=== PATIENT | male | born 1965 ===

== ENCOUNTER 2021-01-12 18:45 | Emergency (ER) | payer BC ==
[2021-01-12] MEDS: Acetaminophen/Codeine 300-30 MG Tab PO ONE (18:49)
--- NOTE | 2021-01-12 18:57 | EDM.PDOC ---
ED HPI GENERAL MEDICAL PROBLEM - General Chief Complaint: General Stated Complaint: HAND INJURY Time Seen by Provider: 01/12/21 18:45 Source of Information: Reports: Patient History Limitations: Reports: No Limitations - History of Present Illness INITIAL COMMENTS - FREE TEXT/NARRATIVE: Mr. Justin baker a 55 YOHM here for Rt hand injury from falling on the ice today. Rt hand is swollen and tender to the touch. He takes no medications on a regular basis. He has not tried anything at home for his pain. No bruising or erythema noted. No fever or CAMPOS, lungs are CTA. Normal HRR. Onset: Today, Sudden Onset Date: 01/12/21 Onset Time: 17:30 Duration: Hour(s): Location: Reports: Lower Extremity, Right Quality: Reports: Ache, Dull Severity: Mild Improves with: Reports: None Worsens with: Reports: Movement Context: Reports: Trauma Associated Symptoms: Reports: No Other Symptoms Right Hand Pain Score (Numeric/FACES): 6 - Related Data Allergies Allergy/AdvReac Type Severity Reaction Status Date / Time No Known Allergies Allergy Verified 01/12/21 19:02 Home Meds: Home Meds NK [No Known Home Meds] 01/12/21 [History] ED ROS GENERAL - Review of Systems Review Of Systems: Comprehensive ROS is negative, except as noted in HPI. Musculoskeletal: Reports: Hand Pain, Joint Pain, Joint Swelling ED EXAM, GENERAL - Physical Exam Exam: See Below Exam Limited By: No Limitations General Appearance: Alert, No Apparent Distress Eye Exam: Bilateral Eye: PERRL Ears: Normal External Exam Nose: Normal Inspection, Normal Mucosa Throat/Mouth: Normal Inspection, Normal Lips, Normal Teeth Head: Atraumatic, Normocephalic Neck: Normal Inspection, Supple, Non-Tender Respiratory/Chest: No Respiratory Distress, Lungs Clear, Normal Breath Sounds Cardiovascular: Normal Peripheral Pulses, Regular Rate, Rhythm, No Edema Peripheral Pulses: 2+: Brachial (L), Brachial (R) GI/Abdominal: Normal Bowel Sounds, Soft, Non-Tender Extremities: Joint Swelling, Limited Range of Motion, Other (Rt hand ) Neurological: Alert, Oriented, CN II-XII Intact Psychiatric: Normal Affect, Normal Mood Skin Exam: Warm, Dry, Intact Lymphatic: No Adenopathy Course - Vital Signs Last Recorded V/S: Last Vital Signs Temp 36.8 C 01/12/21 18:47 Pulse 62 01/12/21 18:47 Resp 16 01/12/21 18:47 BP 135/95 H 01/12/21 19:35 Pulse Ox 99 01/12/21 18:47 - Orders/Labs/Meds Orders: Active Orders 24 hr Category Date Time Status Vaccines to be Administered [RC] PER UNIT ROUTINE Care 01/12/21 19:07 Ordered Hand Comp Min 3V Rt [CR] Stat Exams 01/12/21 18:42 Ordered Hand wo Cont Rt [CT] Stat Exams 01/12/21 19:19 Ordered Meds: Medications Discontinued Medications Generic Name Dose Route Start Last Admin Trade Name Esteban PRN Reason Stop Dose Admin Acetaminophen/Codeine Phosphate 1 tab 01/12/21 19:03 01/12/21 18:49 Tylenol With Codeine No.3 300mg/30mg PO 01/12/21 19:04 1 tab ONETIME ONE Administration Diphtheria/Tetanus/Acell Pertussis 0.5 ml 01/12/21 19:07 01/12/21 19:15 Boostrix IM 01/12/21 19:08 0.5 ml .ONCE ONE Administration Departure - Departure Time of Disposition: 20:20 Disposition: Home, Self-Care 01 Condition: Good Clinical Impression: Pain Right hand fracture Qualifiers: Encounter type: initial encounter Fracture type: closed Qualified Code(s): S62.91XA - Unspecified fracture of right wrist and hand, initial encounter for closed fracture Closed hamate fracture Qualifiers: Encounter type: initial encounter Hamate bone location: body Fracture alignment: displaced Laterality: right Qualified Code(s): S62.141A - Displaced fracture of body of hamate [unciform] bone, right wrist, initial encounter for closed fracture - Discharge Information *PRESCRIPTION DRUG MONITORING PROGRAM REVIEWED*: Not Applicable Forms: ED Department Discharge Additional Instructions: Follow up with Ortho Thursday for evaluation. RT to ED for new or worsening symptoms. Take Tylenol/ Ibuprofen OTC as directed and Tylenol with Codeine 1 tablet by mouth daily as needed for pain-given in the ED. Wear splint and ice right hand. Sepsis Event Note (ED) - Focused Exam Vital Signs: Vital Signs Temp Pulse Resp BP Pulse Ox 01/12/21 19:35 135/95 H 01/12/21 18:47 36.8 C 62 16 140/96 H 99 - My Orders Last 24 Hours: My Active Orders 01/12/21 18:42 Hand Comp Min 3V Rt [CR] Stat 01/12/21 19:07 Vaccines to be Administered [RC] PER UNIT ROUTINE 01/12/21 19:19 Hand wo Cont Rt [CT] Stat - Assessment/Plan Last 24 Hours: My Active Orders 01/12/21 18:42 Hand Comp Min 3V Rt [CR] Stat 01/12/21 19:07 Vaccines to be Administered [RC] PER UNIT ROUTINE 01/12/21 19:19 Hand wo Cont Rt [CT] Stat Assessment:: Rt dorsal 3rd, 4th and 5th MC base fx. Fx dorsal half of the hamate. Plan: Follow up with Ortho Thursday for evaluation. RT to ED for new or worsening symptoms. Take Tylenol/ Ibuprofen OTC and T#3 given in the ED for pain. Wear splint and ice hand.
[2021-01-12] MEDS: Diphtheria,Pertussis(Acell),Tetanus Vaccine 0.5 ML SDV IM ONE (19:15)
[2021-01-12] MEDS ORDERED: Acetaminophen/Codeine 300-30 MG Tab ONE (20:00)
--- NOTE | 2021-01-13 14:04 | CT ---
DATE OF SERVICE: 01/12/21 CLINICAL DATA: fx rt [address] MC. RIGHT HAND CT: Multislice axial acquisition was performed. Axial images and sagittal and coronal reformations are reviewed. The proximal 4th and 5th metatarsals are displaced posteriorly with respect to the distal carpal row. There is also a comminuted fracture through the dorsal aspect of the hamate carpal bone. There is a nondisplaced, bony avulsion from the base of the third metacarpal. There is subchondral cyst on the distal aspect of the navicular carpal bone. No other significant findings. [id number] [facility]
--- NOTE | 2021-01-13 14:07 | CR ---
DATE OF SERVICE: 01/12/21 CLINICAL DATA: fracture RIGHT HAND: On the lateral view, the bases of the 4th and 5th metacarpals do appear to be subluxed, dislocated dorsally with respect to the distal carpal row. No other acute abnormalities. CT scan may be helpful. [id number] [facility]
== END 2021-01-12 20:15 | disposition home or self-care (01) ==
LOC: LB.ED 18:45
DX: S62.141A Displaced fracture of body of hamate [unciform] bone, right wrist, initial encounter for closed fracture (principal); S62.91XA Unspecified fracture of right hand, initial encounter for closed fracture; Z23 Encounter for immunization; W18.30XA Fall on same level, unspecified, initial encounter
CPT/HCPCS: 73130; 73200; 90471; 90715; 99284; A9270; 99283